=== PATIENT | male | born 1955 | race Caucasian/White ===

== ENCOUNTER 2017-04-13 19:19 | Emergency (ER) | payer MEDICARE, OTHER ==
[~2017-04-13] VITALS: Ht 193 cm; Wt 95.5 kg
[2017-04-13 19:23] VITALS: BP 153/85; PULSE 94; RESP 18; O2SAT 97
--- NOTE | 2017-04-13 19:33 | ED.REPORT ---
HPI-General Illness Date of Service April 13, 2017 ED Provider: Dr. Kalin Lovell M.D. The patient is a 62 year old male with a history of diabetes, hypertension, and nephrolithiasis s/p CABG and valve replacement who presents to the ED with a fever (high of 102) onset two days ago. Associated symptoms include dysuria, lower abdominal pain, nausea, left flank pain, cough, sore throat (resolved), and mild constipation. The patient denies diarrhea, vomiting, or other symptoms. He is visiting from [place] and has not checked his blood sugar in three days after forgetting his glucometer at home. Nursing Notes Stated Complaint: FEVER, COUGH, NAUSEA, DIABETIC AND NOT EATING Chief Complaint: General Complaint Nursing Notes Reviewed: Yes Allergies: Coded Allergies: acetaminophen (Verified Allergy, Mild, Vomiting, 04/13/17) oxycodone (Verified Allergy, Mild, Vomiting, 04/13/17) Scheduled Azithromycin (Zithromax (Z-Gurjit)) 250 Mg Tablet 250 MG PO DIRECTED Take two tablets by mouth on day 1, then take one tablet daily on days 2 through 5. General Time Seen by MD: 19:32 Chief Complaint Fever (high of 102) Hx Obtained From: Patient Arrived By: Walk-in Sudden in Onset?: Yes Onset Occurred: 2 days ago Symptom Duration: Since onset Location: : Abdomen: Back (left flank) Quality: Painful Severity: Current: Moderate Severity: Maximum: Moderate Pertinent Negative: Relieved by nothing Context Related History: Reports Diabetes mellitus Recent Healthcare: No recent doctor visit Past Medical History Past Medical History Diabetes Hypertension Nephrolithiasis Past Surgical History CABG Valve replacement Smoking History Former Smoker Social History Other Social History: Good social support, , From out of town, Visiting locally Ambulatory Status Independent Review of Systems Full Review of Systems Constitutional: Reports: Fever (high of 102) Ears / Nose / Throat: Reports: Sore throat (Resolved) Respiratory: Reports: Non-productive cough GI: Reports: Abdominal pain (lower), Constipation (Mild), Nausea, Denies: Diarrhea, Vomiting Male: Reports Dysuria, Reports Flank pain (left) Complete sys rev & neg: except as marked. Physical Exam Vital Signs Vital Signs Date Time Temp Pulse Resp B/P Pulse Ox O2 Delivery O2 Flow Rate FiO2 04/14/17 00:06 36.7 68 13 129/62 99 Room Air 04/13/17 23:44 37.2 70 20 133/57 98 Room Air 04/13/17 19:54 92 17 144/72 98 Room Air 04/13/17 19:23 37.6 94 18 153/85 97 Room Air Initial VS: Reviewed Head / Eyes: Atraumatic, Normocephalic ENT: Conjunctiva normal, No scleral icterus Neck: Supple, Full range of motion Respiratory: Breath sounds normal, Clear to auscultation, No respiratory distress Cardiovascular: Regular rate & rhythm, Heart sounds normal Skin: Warm, Dry, No cyanosis Neurologic: Alert, Oriented, Nonfocal Psychiatric: Mood/affect normal, Behavior normal, Normal thought content General/Constitutional: Awake, Alert Abdomen: Soft, No guarding Tenderness/Guarding/Rebound: Positive: Tender diffuse (Mild) Interpretation & Diagnostics Bedside Glucose: 179 @ 20:01 URINE DIPSTICK: Bedside Urine Specific Pyatt * 1.015 Bedside Urine pH * 5 Bedside Urine Leukocyte Esterase * Negative Bedside Urine Nitrite * Negative Bedside Urine Protein * Trace Bedside Urine Glucose * 50mg/dl Bedside Urine Ketones * ++ Moderate Bedside Urine Urobilinogen * Normal Bedside Urine Bilirubin * Negative Bedside Urine Occult Blood * ~50 Peyman/ml Urine to Lab * Yes Lab Results Interpretation Result Diagram: 04/13/17195304/13/171953 Test 04/13/17 19:54 04/13/17 20:20 White Blood Count 8.8th/mm3 (3.8-10.1) Red Blood Count 4.70mil/mm3 (4.40-5.80) Hemoglobin 14.4g/dL (13.8-17.2) Hematocrit 42.1% (41.0-50.0) Mean Corpuscular Volume 89.6fL (81-100) Mean Corpuscular Hemoglobin 30.6pg (27.0-35.0) Mean Corpuscular Hemoglobin Concent 34.2% (32.0-37.0) Red Cell Distribution Width 12.9% (12.3-15.4) Platelet Count 172bil/L (150-400) Neutrophils (%) (Auto) 79.0% (40-74) Lymphocytes (%) (Auto) 10.0% (14-46) Monocytes (%) (Auto) 10.6% (4-12) Eosinophils (%) (Auto) 0.1% (0-5) Basophils (%) (Auto) 0.1% (0-3) Sodium Level 130mEq/L (134-144) Potassium Level 4.4mEq/L (3.5-5.2) Chloride Level 92mEq/L (97-108) Carbon Dioxide Level 22mmol/L (18-29) Blood Urea Nitrogen 20mg/dL (8-27) Creatinine 1.25mg/dL (0.76-1.27) Estimat Glomerular Filtration Rate 63mL/min (>59) Glucose Level 203mg/dL (60-99) Lactic Acid Level 1.5mmol/L (0.4-2.0) Calcium Level 9.6mg/dL (8.5-10.1) Total Bilirubin 0.8mg/dL (0.0-1.2) Aspartate Amino Transf (AST/SGOT) 16U/L (0-50) Alanine Aminotransferase (ALT/SGPT) 12U/L (0-44) Alkaline Phosphatase 87U/L (25-160) Total Protein 7.4g/dL (6.4-8.4) Albumin 3.8g/dL (3.4-5.0) Urine Color Yellow (YELLOW) Urine Appearance Clear (CLEAR,HAZY) Urine pH 5.0 (5.0-8.0) Urine Specific Pyatt 1.020 (1.003-1.035) Urine Protein Tracemg/dL (NEG,TRACE) Urine Glucose (UA) 100mg/dL (NEGATIVE) Urine Ketones 15mg/dL (NEGATIVE) Urine Occult Blood Trace (NEGATIVE) Urine Nitrite Negative (NEGATIVE) Urine Bilirubin Negative (NEGATIVE) Urine Urobilinogen Normalmg/dL (NORMAL) Urine Leukocyte Esterase Negative (NEGATIVE) Urine RBC 0-2/hpf (0-2) Urine WBC 0-5/hpf (0-5) Urine Epithelial Cells Few/hpf (NONE-MOD) Urine Crystals None seen (NONE SEEN) Urine Bacteria None/hpf (NONE-FEW) Urine Hyaline Casts None/lpf (NONE) Urine Granular Casts None seen (NONE SEEN) Urine Waxy Casts None seen (NONE SEEN) Urine Red Blood Cell Casts None seen (NONE SEEN) Urine White Blood Cell Casts None seen (NONE SEEN) Urine Mucus None seen (None Seen) Urine Trichomonas None seen (NONE SEEN) Urine Yeast None (NONE SEEN) Urinalysis Comment None Urine Culture Reflexed Not indicated X-Ray Chest Interpretation Chest Xray Interpretation: IMPRESSION: Right lung base masslike pulmonary opacities most consistent with infection. Recommend a follow up radiograph in 6 weeks to verify resolution. If persistent chest CT with contrast will be needed to exclude an underlying mass. Dictated by: John Blanco M.D. on 04/13/2017 at 20:05 View: Portable, 1 view Interpretation / Wet Read by: Interpret - Radiologist Re-Eval/Medical Decision Med Decision/Clinical Course Curb 65 score is 0 Time of Eval: 22:05 Patient Status: Condition improved Re-Evaluation/Progress Note: Discussed with patient x-ray and lab results, diagnosis, and plan for discharge. Follow-up and return to the ER instructions given. Patient agrees with plan for care and all questions were addressed. Counseled Regarding: Diagnosis, Lab results, Need for follow-up, When/why to return to ED Discharge & Departure Primary Impression: Pneumonia Pneumonia type: due to unspecified organism Laterality: right Lung location : lower lobe of lung Qualified Code: J18.1 - Lobar pneumonia, unspecified organism Disposition: Home Discharge Condition All VS Reviewed: Yes Condition: Improved Patient Instructions: Community Acquired Pneumonia (ED) Additional Instructions: Thank you for entrusting us with your care. Your x-ray indicated right lower lung pneumonia. Please take the antibiotics (azithromycin) as prescribed. Call your primary care provider on Friday for a follow-up appointment. Return to the ER with any new or worsening symptoms. Gioibe Attestation Portions of this note were transcribed by Ml Tolentino. I, Dr. Lovell, personally performed the history, physical exam, and medical decision-making; I reviewed and confirmed the accuracy of the information in the transcribed note. Signed by: Swapnil Kent, 04/14/2017, 00:15 Kalin Lovell MD April 13, 2017 19:33 ML TOLENTINO April 13, 2017 19:40
[2017-04-13] MEDS ORDERED: Ondansetron 2 mg/mL 2 mL Inj IVPUSH PRN (19:40)
[2017-04-13 19:54] VITALS: BP 144/72; PULSE 92; RESP 17; O2SAT 98
[2017-04-13] MEDS: 0.9% Sodium Chloride 1,000 ML IV PRN ×2 (20:07→20:52)
--- NOTE | 2017-04-13 20:07 | DRSVH ---
PROCEDURE: X-RAY CHEST ONE VIEW, PORTABLE ([id number]) INDICATIONS: fever/cough TECHNIQUE: One view of the chest was acquired. COMPARISON: None. FINDINGS: Surgical changes and devices: Sternotomy with mediastinal postoperative changes.. Lungs and pleura: Masslike right basilar pulmonary opacity in left lung is clear per hyperinflation are present COPD.. Mediastinum: Mediastinal contours appear normal. Heart size is normal. Bones and chest wall: No suspicious bony lesions. Overlying soft tissues appear unremarkable. IMPRESSION: Right lung base masslike pulmonary opacities most consistent with infection. Recommend a follow up radiograph in 6 weeks to verify resolution. If persistent chest CT with contrast will be needed to exclude an underlying mass. Dictated by: John Blanco M.D. on 04/13/2017 at 20:05 Approved by: John Blanco M.D. on 04/13/2017 at 20:06
[2017-04-13 20:09] LABS: BASOPHILS % (AUTO) 0.1 % (0-3); EOSINOPHILS % (AUTO) 0.1 % (0-5); MONOCYTES % (AUTO) 10.6 % (4-12); Mean Corpuscular Hemoglobin 30.6 pg (27.0-35.0); Mean Corpuscular Volume 89.6 fL (81-100); Platelet Count 172 bil/L (150-400)
[2017-04-13 20:48] LABS: APPEARANCE,URINE CLEAR (CLEAR,HAZY); COLOR,URINE YELLOW (YELLOW); OCCULT BLOOD,URINE TRACE (NEGATIVE); UROBILINOGEN,URINE NORMAL (NORMAL)
[2017-04-13] MEDS ORDERED: Azithromycin Inj 500 MG in Dextrose 5% 250 ML IV ONE (21:35)
[2017-04-13] MEDS ORDERED: cefTRIAXone Inj 2,000 MG in Dextrose 5% Minibag Plus 50 ML IV ONE (21:35)
[2017-04-13 23:44] VITALS: BP 133/57; PULSE 70; RESP 20; O2SAT 98
[2017-04-13] MEDS ORDERED: AZIT250T4 PO (23:56)
[2017-04-14 00:06] VITALS: BP 129/62; PULSE 68; RESP 13; O2SAT 99
== END 2017-04-14 00:10 | disposition home or self-care (01) ==
LOC: SED 19:19
DX: J18.1 Lobar pneumonia, unspecified organism (principal); R30.0 Dysuria; R10.30 Lower abdominal pain, unspecified; R11.0 Nausea; R05 Cough; J02.9 Acute pharyngitis, unspecified; K59.00 Constipation, unspecified; E11.9 Type 2 diabetes mellitus without complications; I10 Essential (primary) hypertension; N20.0 Calculus of kidney; Z95.2 Presence of prosthetic heart valve; Z95.1 Presence of aortocoronary bypass graft; Z87.891 Personal history of nicotine dependence; Z88.6 Allergy status to analgesic agent; Z88.5 Allergy status to narcotic agent
CPT/HCPCS: 36415; 71010; 80053; 81000; 82948; 83605; 85025; 96361; 96365; 96367; 96375; 99285; J0456; J0696; J1885; J2405; J7030